=== PATIENT | female | born 1985 | race African-American/Black ===

== ENCOUNTER 2017-11-23 16:15 | Emergency (ER) | payer SELFPAY ==
--- NOTE | 2017-11-23 18:07 | RAD ---
RADIOGRAPH CHEST 2 VIEWS: 11/23/17 HISTORY: 32-year-old female with dyspnea. FINDINGS: There is no air space density, pulmonary edema, pleural effusion, or pneumothorax. IMPRESSION: No acute pulmonary findings. jn [] POS: [facility]
[2017-11-23 18:11] LABS: #Basophils 0.1 thou/uL (0.0-0.2); #Lymphocytes 2.9 thou/uL (1.20-3.40); #Monocytes 0.4 thou/uL (0.11-0.59); #Neutrophils 3.5 thou/uL (1.40-6.50); %Basophils 0.7 % (0.0-1.0); %Eosinophils 0.5 % (0.0-10.0); %Lymphocytes 42.4 % (21.0-51.0); %Monocytes 6.2 % (0.0-10.0); %Neutrophils 50.2 % (42.0-75.0); Hemoglobin 11.9 g/dL (12.0-16.0); Mean Corpuscular HGB CONC 32.7 g/dL (32.0-36.0); Mean Corpuscular Hemoglobin 28.5 pg (27.0-31.0); Mean Corpuscular Volume 87.1 fl (81.0-99.0); Mean Platelet Volume 6.5 fL (7.4-10.4); Platelet Count 371 thou/uL (130-400); RBC Distribution Width 12.2 % (11.5-14.5); Red Blood Cell (RBC) Count 4.19 mill/uL (4.20-5.40); White Blood Cell (WBC) Count 6.9 thou/uL (4.8-10.8)
[2017-11-23 18:27] LABS: ALT (SGPT) 11 U/L (8-55); AST (SGOT) 12 U/L (5-34); Albumin 3.9 g/dL (3.5-5.0); Alkaline Phosphatase 59 U/L (40-150); Anion Gap 13 mmol/L (10-20); BUN (Urea Nitrogen) 10 mg/dL (7.0-18.7); Bilirubin, Total 0.2 mg/dL (0.2-1.2); Calc. Creatinine Clearance 0 mL/min (70-130); Calcium 8.9 mg/dL (7.8-10.44); Carbon Dioxide 26 mmol/L (22-29); Chloride 105 mmol/L (98-107); Estimated GFR-MDRD Greater than 90; Globulin 3.9 g/dL (2.4-3.5); Glucose 97 mg/dL (70-105); Potassium 3.5 mmol/L (3.5-5.1); Protein, Total 7.8 g/dL (6.0-8.3); Sodium 140 mmol/L (136-145)
== END 2017-11-23 18:35 | disposition home or self-care (01) ==
LOC: MADERS 16:15
DX: R06.02 Shortness of breath (principal); I10 Essential (primary) hypertension; G43.909 Migraine, unspecified, not intractable, without status migrainosus; E66.9 Obesity, unspecified
CPT/HCPCS: 36415; 71046; 80053; 85025; 94760

== ENCOUNTER 2020-03-15 22:53 | Emergency (ER) | payer OTHER, SELFPAY | END 2020-03-15 23:30 | disposition home or self-care (01) | LOC: MADERS 22:53 | DX: I10 Essential (primary) hypertension (principal); E66.9 Obesity, unspecified; F32.9 Major depressive disorder, single episode, unspecified; F17.210 Nicotine dependence, cigarettes, uncomplicated; Z79.899 Other long term (current) drug therapy | CPT/HCPCS: 99283 ==

== ENCOUNTER 2020-05-11 03:04 | Emergency (ER) | payer OTHER, SELFPAY ==
[2020-05-11] MEDS ORDERED: Lidocaine 2% w/Epinephrine 1:200K 20 ML VIAL ONE (03:19)
[2020-05-11] MEDS ORDERED: Sodium Chloride Irrig Solution 250 ML ONE (04:27)
--- NOTE | 2020-05-11 08:41 | CT ---
PRELIMINARY REPORT/[facility]/EMERGENCY AFTER HOURS PROCEDURE: EXAM: CT Head Without Intravenous Contrast. CLINICAL HISTORY: TRAUMA, LACERATION TO FOREHEAD ABOVE EYES. TECHNIQUE: Axial computed tomography images of the head/brain without intravenous contrast. COMPARISON: None provided. FINDINGS: BRAIN: No acute intraparenchymal hemorrhage. No mass lesion. No CT evidence for acute territorial infarct. N o midline shift or extra-axial collection. VENTRICLES: No hydrocephalus. ORBITS: The orbits are unremarkable. SINUSES AND MASTOIDS: The paranasal sinuses and mastoid air cells are clear. SOFT TISSUES: Left lateral frontal scalp laceration with underlying increased soft tissue attenuation. No radiopaqu e foreign body is seen. BONES: No acute skull fracture. IMPRESSION: No acute intracranial abnormality. Left lateral scalp laceration/hematoma without retained radiopaque foreign body. ELECTRONICALLY SIGNED BY: Beltran Bowman DO May 11, 2020 4:03:24 AM CDT This report is intended for review by the ordering physician only, in accordance of law. If you recei ve this report in error, please call [facility] at [phone]. FINAL REPORT EMERGENCY AFTER HOURS CT BRAIN: FINDINGS/IMPRESSION: I agree with the findings and impression given in the preliminary report per [facility] physici an. No evidence of acute intracranial abnormality. POS: [facility]
== END 2020-05-11 04:17 | disposition home or self-care (01) ==
LOC: MADERS 03:04
DX: S01.81XA Laceration without foreign body of other part of head, initial encounter (principal); I10 Essential (primary) hypertension; E66.9 Obesity, unspecified; F32.9 Major depressive disorder, single episode, unspecified; Z79.899 Other long term (current) drug therapy; W22.8XXA Striking against or struck by other objects, initial encounter
CPT/HCPCS: 12013; 70450

== ENCOUNTER 2021-04-20 22:23 | Emergency (ER) | payer BC, SELFPAY ==
[2021-04-20 23:05] LABS: #Basophils 0.1 thou/uL (0.0-0.2); #Eosinphils 0.1 thou/uL (0.0-0.7); #Monocytes 0.4 thou/uL (0.11-0.59); #Neutrophils 3.6 thou/uL (1.40-6.50); %Eosinophils 1.1 % (0.0-10.0); %Lymphocytes 41.5 % (21.0-51.0); %Neutrophils 50.4 % (42.0-75.0); Hemoglobin 10.6 g/dL (12.0-16.0); Mean Corpuscular HGB CONC 31.9 g/dL (32.0-36.0); Mean Corpuscular Hemoglobin 28.3 pg (27.0-31.0); Mean Corpuscular Volume 88.4 fL (78.0-98.0); Mean Platelet Volume 7.5 fL (7.4-10.4); Platelet Count 336 thou/uL (130-400); RBC Distribution Width 12.4 % (11.5-14.5); Red Blood Cell (RBC) Count 3.76 mill/uL (4.20-5.40); White Blood Cell (WBC) Count 7.2 thou/uL (4.8-10.8)
[2021-04-20 23:12] LABS: Bilirubin Negative (Negative); Blood, Urine Negative (Negative); Clarity Clear (Clear); Glucose, Urine (Dipstick) Negative (Negative); Ketone, Urine Negative (Negative); Leukocyte Negative (Negative); Nitrite Negative (Negative); Pregnancy Test - Urine (BHCG) Negative (Negative); Pregu Control Background? CLEAR/WHITE (CLR/WHITE); Pregu Control Bar Appear? YES (CONTROL BAR); Protein, Urine (Dipstick) Negative (Neg-Trace); Specific Gravity 1.025 (1.002-1.036); Specific Gravity, Urine 1.025 (1.005-1.030); pH, Urine 8.5 (5.0-9.0)
[2021-04-20 23:25] LABS: Anion Gap 10 mmol/L (10-20); BUN (Urea Nitrogen) 10 mg/dL (7.0-18.7); CK (CPK) 173 U/L (29-168); Calc. Creatinine Clearance 0 mL/min (70-130); Calcium 8.6 mg/dL (7.8-10.44); Carbon Dioxide 25 mmol/L (22-29); Chloride 108 mmol/L (98-107); Glucose 105 mg/dL (70-105); Potassium 4.2 mmol/L (3.5-5.1); Sodium 139 mmol/L (136-145)
== END 2021-04-20 23:36 | disposition home or self-care (01) ==
LOC: MADERS 22:23
DX: R30.0 Dysuria (principal); R06.00 Dyspnea, unspecified; I10 Essential (primary) hypertension; E66.9 Obesity, unspecified; Z79.899 Other long term (current) drug therapy
CPT/HCPCS: 36415; 80048; 81003; 81025; 82550; 84484; 85025; 93005

== ENCOUNTER 2022-01-05 18:14 | Emergency (ER) | payer BC | END 2022-01-05 19:15 | disposition home or self-care (01) | LOC: MADERS 18:14 | DX: R09.82 Postnasal drip (principal); R05.9 Cough, unspecified; K21.9 Gastro-esophageal reflux disease without esophagitis; I10 Essential (primary) hypertension; E66.9 Obesity, unspecified; Z68.45 Body mass index [BMI] 70 or greater, adult; Z86.16 Personal history of COVID-19 | CPT/HCPCS: 71046 ==

== ENCOUNTER 2022-11-29 00:20 | Emergency (ER) | payer BC, OTHER ==
[2022-11-29] MEDS ORDERED: Ibuprofen 400 MG TAB ONE (01:00)
[2022-11-29] MEDS ORDERED: Penicillin V Potassium 250 MG TAB ONE (01:00)
== END 2022-11-29 01:15 | disposition home or self-care (01) ==
LOC: MADERS 00:20
DX: K04.4 Acute apical periodontitis of pulpal origin (principal); K02.9 Dental caries, unspecified; K21.9 Gastro-esophageal reflux disease without esophagitis; I10 Essential (primary) hypertension; E66.9 Obesity, unspecified
CPT/HCPCS: 99282

== ENCOUNTER 2023-03-28 17:04 | Emergency (ER) | payer BC, OTHER ==
[2023-03-28] MEDS ORDERED: Lidocaine 2% 20 ml MDV ONE (17:16)
[2023-03-28] MEDS ORDERED: Boostrix 0.5 ML (Tdap) VIAL (>/=7 yrs of age) ONE (17:23)
[2023-03-28] MEDS ORDERED: Lidocaine 1% PF 5 ML VIAL ONE (17:24)
[2023-03-28] MEDS ORDERED: Bacitracin 1 PK ONE (17:32)
== END 2023-03-28 17:35 | disposition home or self-care (01) ==
LOC: MADERS 17:04
DX: S61.411A Laceration without foreign body of right hand, initial encounter (principal); I10 Essential (primary) hypertension; E66.9 Obesity, unspecified; W26.0XXA Contact with knife, initial encounter; Y92.000 Kitchen of unspecified non-institutional (private) residence as the place of occurrence of the external cause; Z23 Encounter for immunization
CPT/HCPCS: 12001; 90471; 90715

== ENCOUNTER 2023-11-02 12:35 | Emergency (ER) | payer BC, OTHER | END 2023-11-02 14:17 | disposition home or self-care (01) | LOC: MADERS 12:35 | DX: M62.838 Other muscle spasm (principal); I10 Essential (primary) hypertension | CPT/HCPCS: 99283 ==

== ENCOUNTER 2024-05-30 22:21 | Emergency (ER) | payer BC ==
[2024-05-30] MEDS ORDERED: Ketorolac Tromethamine 30 MG (1 mL) VIAL ONE (23:26)
== END 2024-05-30 23:49 | disposition home or self-care (01) ==
LOC: MADERS 22:21
DX: M79.10 Myalgia, unspecified site (principal); I10 Essential (primary) hypertension
CPT/HCPCS: 96372; 99283; J1885

== ENCOUNTER 2024-11-13 13:06 | Emergency (ER) | payer BC | END 2024-11-13 14:47 | disposition home or self-care (01) | LOC: MADERS 13:06 | DX: S83.92XA Sprain of unspecified site of left knee, initial encounter (principal); J06.9 Acute upper respiratory infection, unspecified; I10 Essential (primary) hypertension; X58.XXXA Exposure to other specified factors, initial encounter | CPT/HCPCS: 87081; 87428; 87430; 99283 ==